=== PATIENT | female | born 2000 | race Caucasian/White ===

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

== ENCOUNTER 2020-03-03 16:42 | Emergency (ER) | payer BC, SELFPAY ==
--- NOTE | 2020-03-03 16:51 | ED.GENADULT ---
HPI - General Adult General Chief complaint: Vaginal Bleeding Stated complaint: abnormal period bleeding Time Seen by Provider: 03/03/20 16:45 Source: patient History of Present Illness HPI narrative: Patient is a 19 y/o female complaining heavy vaginal bleeding today. She states that she has been having menstrual bleeding for last 2 month. She describes the bleeding as bright red with clots. There is no alleviating or exacerbating factor. She has some pelvic cramping. She has no fever, chills or dysuria. She states that she is not . Related Data Home Medications Medication Instructions Recorded Confirmed norgestimate-ethinyl estradiol tablet 04/27/19 [[id number]] Allergies Allergy/AdvReac Type Severity Reaction Status Date / Time aloe Allergy Mild Unknown Verified 03/03/20 17:06 aloe vera Allergy Mild Unknown Verified 03/03/20 17:06 poison oak extract Allergy Mild RASH Verified 03/03/20 17:06 poison sumac extract Allergy Mild RASH Verified 03/03/20 17:06 vitamin E (d-alpha Allergy Mild Unknown Verified 03/03/20 17:06 tocopherol) amoxicillin Allergy Unknown Unknown Verified 03/03/20 17:06 azithromycin Allergy Unknown RASH Verified 03/03/20 17:06 clavulanic acid Allergy Unknown Unknown Verified 03/03/20 17:06 erythromycin base Allergy Unknown Unknown Verified 03/03/20 17:06 Penicillins Allergy Unknown Unknown Verified 03/03/20 17:06 poison reji extract Allergy Unknown RASH Verified 03/03/20 17:06 BLEACH Allergy Unknown HIVES Uncoded 03/03/20 17:06 CITRUS Allergy Unknown Unknown Uncoded 03/03/20 17:06 Molds and Smuts Allergy Unknown Unknown Uncoded 03/03/20 17:06 Review of Systems Constitutional: Constitutional: Denies chills, Denies fever(s), Denies headache(s) and Denies weakness Eyes: Eyes: Denies blurry vision ENT: Denies headache(s) and Denies neck pain Cardiovascular: Cardiovascular: Denies chest pain and Denies dyspnea Respiratory: Respiratory: Denies cough and Denies dyspnea Gastrointestinal: Gastrointestinal: Denies abdominal pain, Denies diarrhea, Denies nausea and Denies vomiting Genitourinary: Genitourinary: Reports as per HPI, Reports abnormal menses, Reports abnormal vaginal bleeding, Denies hematuria and Denies dysuria Musculoskeletal: Musculoskeletal: Denies back pain and Denies neck pain Neurologic: Denies headache(s) and Denies weakness [facility] Past Medical History Medical History (Updated 03/03/20 @ 18:22 by Viki Kyle MD) Anxiety and depression Panic attack Surgical History Surgical History Hx of tonsillectomy Family History Family History Grandparent Cerebrovascular accident Hypertension Emphysema lung Hypothyroid Mother Cervical cancer Hypertension Social History Social History Smoking status: Never smoker Exam Const: General: no acute distress and well developed Orientation/consciousness: oriented to person, oriented to place, oriented to time and patient oriented x3 HENMT: Head: normocephalic Ears: external ears normal General nose exam: Normal external nose present Eyes: General: appearance normal, both eyes and all related structures Conjunctivae: conjunctivae normal Neck: Neck: normal visual inspection and full ROM Chest: Chest palpation & inspection: normal inspection of the chest and no tenderness Resp: Effort & Inspection: normal respiratory effort Auscultation: clear to auscultation bilaterally Cardio: Rate: regular rate Rhythm: regular rhythm GI: GI Palp: No abdominal tenderness and Yes Soft to palpation Skin: General skin exam: normal color and turgor normal Neuro: General: oriented to person, oriented to place, oriented to time and patient oriented x3 Cognition (Neuro): normal cognition Extrem: General: normal to inspection, full ROM and no pedal edema Psych:
[2020-03-03 17:01] VITALS: BP 103/71; PULSE 108; RESP 12; TEMP 36.9; O2SAT 98
[2020-03-03 17:05] LABS: Basophils Percent Auto 0.8 % (0.2-1.2); Eosinophils Absolute Auto 0.1 K/mm3 (0-0.3); Eosinophils Percent Auto 1.3 % (0-4.4); Hematocrit 35.9 % (37.0-47.0); Hemoglobin 11.2 g/dL (12.0-15.0); Immature Granulocyte Absolute 0.01 K/mm3 (0.00-0.031); Immature Granulocyte Percent A 0.2 % (0-0.5); Lymphocytes Absolute Auto 1.34 K/mm3 (0.9-3.2); Lymphocytes Percent Auto 25.3 % (18.3-44.2); Mean Corpuscular HGB Conc 31.2 g/dl (32-36); Mean Corpuscular Hemoglobin 22.8 pg (26-34); Mean Corpuscular Volume 73.1 fl (80-100); Mean Platelet Volume 11.1 fl (7.4-10.4); Monocytes Absolute Auto 0.6 K/mm3 (0.1-0.6); Monocytes Percent Auto 11.1 % (2.6-8.5); Neutrophils Absolute Auto 3.3 K/mm3 (1.3-6.7); Neutrophils Percent Auto 61.3 % (45.5-73.1); Platelet Count Result 218 k/mm3 (150-375); Red Blood Count 4.91 M/mm3 (4.2-5.4); Red Cell Distribution Width 15.7 % (11.5-14.5); White Blood Count 5.3 K/mm3 (4.5-10.0)
[2020-03-03 17:25] LABS: Anion Gap 7 mmol/L (8-16); Blood Urea Nitrogen 12 mg/dL (8-21); Calcium 8.6 mg/dL (8.9-10.7); Carbon Dioxide 27 mmol/L (22-30); Chloride 105 mmol/L (98-107); Estimated CRCL calculation 88 ml/min; Estimated Glomerular Filt Rate > 60; Glucose 94 mg/dL (65-105); Potassium 4.1 mmol/L (3.4-5.0); Sodium 139 mmol/L (134-143)
[2020-03-03 17:42] LABS: Add Urine Microscopic? YES; Appearance Urine Cloudy (Clear); Bacteria Urine Trace /hpf; Bilirubin Urine Negative (Negative); Blood Urine 2+ (Negative); Color Urine Yellow (Yellow); Glucose Urine UA Negative (Negative); Ketones Urine Negative (Negative); Leukocyte Esterase Ur Negative LEU/UL (Negative); Mucus Urine Few /lpf; Nitrate Urine Negative (Negative); Protein Urine Negative (Negative); RBC Urine 0-2 /hpf (0-2); Specific Grav Ur 1.024 (1.001-1.035); Squamous Epithelial Cell Urine Moderate /hpf (Few); WBC Clumps Urine Present /HPF
== END 2020-03-03 18:37 | disposition home or self-care (01) ==
PROVIDERS: Emergency Provider Emergency Medicine; PCP Family Medicine Sports Medicine
DX: N93.8 Other specified abnormal uterine and vaginal bleeding (principal)
CPT/HCPCS: 36415; 80048; 81001; 81025; 85025; 87086; 87088; 99283

== ENCOUNTER 2022-08-26 11:19 | Emergency (ER) | payer BC, SELFPAY ==
[2022-08-26 11:26] VITALS: BP 108/73; PULSE 64; RESP 16; TEMP 37.1; O2SAT 100
--- NOTE | 2022-08-26 11:49 | ED.EAR ---
HPI - Ear Problem General Chief complaint: Ear Stated complaint: ear pain Time Seen by Provider: 08/26/22 11:38 Source: patient Mode of arrival: ambulatory Limitations: no limitations History of Present Illness HPI Narrative: Patient presents today with a 10 day history of bilateral ear pain and pressure, left greater than right. Today she lost hearing in her left ear for period of time, but this has since partially resolved. She currently rates her pain 4/10 and has tried no [id number] interventions for her symptoms prior to arrival. Does report some, ?allergy symptoms? to include rhinorrhea and mild nasal congestion. Related Data Home Medications Medication Instructions Recorded Confirmed norgestimate 0.18 mg/0.215 mg/0.25 1 tablet PO DAILY 04/27/19 08/26/22 mg-ethinyl estradiol 25 mcg tablet ([id number]) bupropion HCl 150 mg 24 hr tablet, 150 mg PO DAILY 08/26/22 08/26/22 extended release buspirone 10 mg tablet 10 mg PO DAILY 08/26/22 08/26/22 propranolol 40 mg tablet 40 mg PO DAILY 08/26/22 08/26/22 sertraline 100 mg tablet 100 mg PO DAILY 08/26/22 08/26/22 Allergies Allergy/AdvReac Type Severity Reaction Status Date / Time aloe Allergy Mild Unknown Verified 08/26/22 11:32 aloe vera Allergy Mild Unknown Verified 08/26/22 11:32 poison oak extract Allergy Mild RASH Verified 08/26/22 11:32 poison sumac extract Allergy Mild RASH Verified 08/26/22 11:32 vitamin E (d-alpha Allergy Mild Unknown Verified 08/26/22 11:32 tocopherol) amoxicillin Allergy Unknown Unknown Verified 08/26/22 11:32 azithromycin Allergy Unknown RASH Verified 08/26/22 11:32 clavulanic acid Allergy Unknown Unknown Verified 08/26/22 11:32 erythromycin base Allergy Unknown Unknown Verified 08/26/22 11:32 Penicillins Allergy Unknown Unknown Verified 08/26/22 11:32 poison reji extract Allergy Unknown RASH Verified 08/26/22 11:32 BLEACH Allergy Unknown HIVES Uncoded 03/03/20 17:06 CITRUS Allergy Unknown Unknown Uncoded 03/03/20 17:06 Molds and Smuts Allergy Unknown Unknown Uncoded 03/03/20 17:06 Review of Systems Review of Systems: CONSTITUTIONAL: Denies body aches, fever, chills, or sweats. EYES: Denies visual changes, redness, or discharge. ENT: Denies sore throat. + bilateral ear pain, rhinorrhea, congestion CARDIOVASCULAR: Denies chest pain, palpitations, or edema. RESPIRATORY: Denies cough or dyspnea. GASTROINTESTINAL: Denies abdominal pain, nausea, vomiting, or diarrhea. GENITOURINARY: Denies dysuria or hematuria. SKIN: Denies rash, itching, or wounds. MUSCULOSKELETAL: Denies back pain, joint pain, or myalgia. NEUROLOGIC: Denies headache, numbness, tingling, or weakness. PSYCH: Denies depression or anxiety. [facility] Past Medical History Medical History (Updated 08/26/22 @ 11:54 by Pauly Barillas, DON, ) Anxiety and depression Panic attack Surgical History Surgical History Hx of tonsillectomy Family History Family History Grandparent Cerebrovascular accident Hypertension Emphysema lung Hypothyroid Mother Cervical cancer Hypertension Social History Social History Smoking status: Never smoker Comments At time of signature, I have reviewed and agree with nursing past medical, surgical, social and family history unless otherwise noted. Please see nursing chart for further information. There is no relevant family history pertinent to the presenting complaint Exam Narrative: GENERAL: Well-appearing, well-nourished, and in no acute distress. HEAD: Normocephalic, atraumatic. EYES: EOMI. No redness or drainage. Conjunctivae normal. ENT: Mucous membranes pink and moist. Mild congestion and rhinorrhea.. Bilateral TMs retracted, left greater than right. TMs are [place]on in color with no evidence of bacterial infection. NECK:
== END 2022-08-26 11:55 | disposition home or self-care (01) ==
PROVIDERS: Emergency Provider Nurse Practitioner
DX: J30.2 Other seasonal allergic rhinitis (principal); H73.893 Other specified disorders of tympanic membrane, bilateral; F32.A Depression, unspecified; F41.9 Anxiety disorder, unspecified
CPT/HCPCS: 99211; G0463